=== PATIENT | female | born 1980 | race Caucasian/White ===

== ENCOUNTER 2023-10-18 00:44 | Emergency (ER) | payer OTHER, SELFPAY ==
[2023-10-18 00:51] VITALS: BP 210/136
[2023-10-18 01:25] VITALS: BMI 35.3
--- NOTE | 2023-10-18 01:25 | ED.GENMED ---
History of Present Illness
<LETICIA Mcbride - Last Filed: 10/18/23 01:43>
General
Chief Complaint: Blood Pressure Problem
Source: patient
Exam Limitations: none
Time Seen by Provider: 10/18/23 01:07
Travel History
Have you had any contact with someone who has COVID-19?: No
Do you have any symptoms of coronavirus? Fever > 100 degrees, chills, cough, shortness of breath, sore throat, loss of taste or smell, muscle aches, or headache?: Yes
Symptoms:: sore throat
History of Present Illness
History of Present Illness:
43 YO F with a PMH of glaucoma, controlled on Simbrinza and Lumigan gtts, preeclampsia x 12 years, presenting here today for high blood pressure x 2 hours. Pt reports she saw her primary doctor recently for a scratchy throat on 10/14. She was strep
tested and it was negative. Her blood pressure at that time was 180/120, so her doctor informed her to come back in a week if the pressure was still elevated. Pt decided to come in due to a BP reading of 210/136 manually, taken at 11:30 p.m. She
complains of a minor headache, rating the severity a 1/10. She reports that she had a minor headache over the past few days. She states her blood pressure has never been this high. She denies a PMH of diabetes or HTN. Denies CP, SOB, N and V. She
reports a few loose stools. Pt reports she is currently on control.
Past History
<LETICIA Mcbride - Last Filed: 10/18/23 01:43>
Social History
Tobacco: Non-smoker
Alcohol: None
Drug: None
Employment: Not employed
Family History
Family History: CAD ([place])
Review of Systems
<LETICIA Mcbride - Last Filed: 10/18/23 01:43>
Review of Systems
Constitutional: Reports no symptoms
EENT: Reports no symptoms
Respiratory: Reports no symptoms
Cardiac: Reports no symptoms
ABD/GI: Reports no symptoms
: Reports no symptoms
Musculoskeletal: Reports no symptoms
Skin: Reports no symptoms
Neurological: Reports no symptoms
Endocrine: Reports no symptoms
Phy Exam
<ST RaeAZ - Last Filed: 10/18/23 01:43>
Physical Exam
Physical Exam:
Normal S1 and S2, Breath sounds are equal B/L
General Physical Exam
General Presentation: well appearing
General age: appears stated age
General Habitus: normal
General Mental: alert
General Hydration: appears well hydrated
Cardiovascular Exam
Cardiovascular Exam: regular rate/rhythm
Pulmonary Exam
Pulmonary Exam: lungs clear
Cough: other (Slight cough)
Neurological Exam
Neurological Exam: alert and oriented x3
Psychiatric Exam
Psychiatric Exam: normal mood/affect
Course
<Lizette Ashley [facility] - Last Filed: 10/18/23 01:43>
Orders/Labs/Results
Orders:
Orders
10/18/23 01:33
Complete Blood Count/With Diff Urgent
Comprehensive Metabolic Panel Urgent
TSH Urgent
10/18/23 01:44
Lisinopril [Zestril] 5 mg PO NOW STA
Abnormal Lab Results
10/18/23
01:33
Hct 35.2 L %
(37.0-47.0)
BUN 6 L mg/dl
(7-17)
Creatinine 0.4 L mg/dL
(0.6-1.0)
Glucose 114 H mg/dl
(70-99)
AST 37 H U/L
(14-36)
10/18/23 01:33
10/18/23 01:33
Vital Signs
Initial and Last Documented VS:
Initial Vital Signs
Temp Pulse Resp BP Pulse Ox
99.0 F 109 18 210/136 99
10/18/23 00:51 10/18/23 00:51 10/18/23 00:51 10/18/23 00:51 10/18/23 00:51
Last Documented Vital Signs
Temp Pulse Resp BP Pulse Ox
98.9 F 101 15 171/102 96
10/18/23 01:51 10/18/23 04:02 10/18/23 04:00 10/18/23 04:02 10/18/23 04:02
Renalt;Eduardo Caldwell, DO - Last Filed: 10/18/23 04:40>
Orders/Labs/Results
Orders:
Orders
10/18/23 01:33
Complete Blood Count/With Diff Urgent
Comprehensive Metabolic Panel Urgent
TSH Urgent
10/18/23 01:44
Lisinopril [Zestril] 5 mg PO NOW STA
Abnormal Lab Results
10/18/23
01:33
Hct 35.2 L %
(37.0-47.0)
BUN 6 L mg/dl
(7-17)
Creatinine 0.4 L mg/dL
(0.6-1.0)
Glucose 114 H mg/dl
(70-99)
AST 37 H U/L
(1436)
10/18/23 01:33
10/18/23 01:33
Vital Signs
Initial and Last Documented VS:
Initial Vital Signs
Temp Pulse Resp BP Pulse Ox
99.0 F 109 18 210/136 99
10/18/23 00:51 10/18/23 00:51 10/18/23 00:51 10/18/23 00:51 10/18/23 00:51
Last Documented Vital Signs
Temp Pulse Resp BP Pulse Ox
98.9 F 101 15 171/102 96
10/18/23 01:51 10/18/23 04:02 10/18/23 04:00 10/18/23 04:02 10/18/23 04:02
<LETICIA Mcbride - Last Filed: 10/18/23 01:43>
MDM/Problems Addressed
Differential Diagnosis Includes:
Hypertensive episode, Renal artery stenosis, CKD, Aortic stenosis
MDM/Problems Addressed:
HBP x 2 hours
<LETICIA Mcbride - Last Filed: 10/18/23 01:43>
*Critical Care Note
Total Time (30-74mins, 75-104mins- exclusive of procedures): Not Applicable
<Eduardo Caldwell DO - Last Filed: 10/18/23 04:40>
Update Note
Update Note:
10/18/2023 0355 AM: Patient resting comfortably. Blood pressure is improving. Will continue to observe
ED Attending Note
<LETICIA Mcbride - Last Filed: 10/18/23 01:43>
-
Portions of this chart may have been created with voice recognition software.� Occasional wrong word or��sound alike� substitutions may have occurred due to the inherent limitations of voice recognition software.
<Eduardo Caldwell DO - Last Filed: 10/18/23 04:40>
ED Attending Note
Patient seen and examined by attending physician: Yes
I performed the substantive portion of visit, reviewed & personally made and approve the management plan that is documented in note by myself or BUBBA.: Yes
ED Attending Note:
Pleasant 43-year-old female presents with hypertension. Patient was seen at her primary care provider 3 days ago and it was noted that she was hypertensive. She states that she was given a blood pressure cuff that check her blood pressure at home.
Tonight she noted that the blood pressure was elevated so she came into the emergency department. Patient states that she has a chronic headache. It has not been exacerbated by this blood pressure according to patient. She states that the
headache is very mild and no different than her typical headaches. Patient has a sore throat and nasal congestion for which she originally saw her family doctor for. Denies fever or chills. Patient was seen in conjunction with the PA student. I
have reviewed and agree with the history and treatment plan presented. On my independent physical exam, patient is awake, alert, and oriented x3, no acute distress. Heart is regular rate and rhythm. Lungs are clear to auscultation bilaterally
without wheezes rales or rhonchi present
10/18/2023 0437 AM; patient resting comfortably, in no acute distress. Blood pressure is acceptable. Will discharge on lisinopril. She will follow-up with her family doctor
Discharge Plan
Departure
Patient Disposition: Home (Routine Discharge)
Date of Disposition: 10/18/23
Time of Disposition: 04:37
Patient with high blood pressure during this ER visit?: Yes
Condition: Good
Discharge Problem:
Hypertension
Instructions: High Blood Pressure (DC), BLOOD PRESSURE
Prescriptions:
New
lisinopril [Zestril] 10 mg tablet
10 mg PO DAILY Qty: 30 0RF
No Action
norgestimate-ethinyl estradiol [Bri] 0.25-35 mg-mcg Tablet
1 tab PO DAILY
bimatoprost 0.01 % Drops
1 drp OPHTHALMIC (EYE) QPM
Simbrinza 1-0.2 % Drops,Suspension
1 drp OPHTHALMIC (EYE) BID
Referrals:
Josesito Carrasco DO [Family Provider] -
Activity Restrictions/Additional Instructions:
It was a pleasure meeting you and taking part in your care. We hope for your continued healing and wellness.
Please read discharge instructions in their entirety. However, they are for general education and may not describe your exact diagnosis at discharge. Information on your ER visit and medical conditions were discussed with you along with appropriate
follow up information...
If indicated, please take your medications as instructed and indicated on discharge paperwork.
Please schedule a follow up appointment as directed. Call to schedule an appointment
Please return to the emergency department with ANY change in, persisting, or worsening of symptoms. If any of your symptoms do not improve, or persist, or become more severe within 6-12 hours, please return to the emergency department for further
care.
Please return to the emergency department if you develop a headache, neck pain/stiffness, fever greater than 100.4F, chest pain, shortness of breath, persistent nausea, vomiting, slurred speech, difficulty walking, numbness/tingling, weakness, signs
of infection or any other symptoms that are worrisome to you.
If you have any questions or concerns please do not hesitate to call the Hospital at or E-mail me directly at [email or web address]
Interventions
Interventions:
*Risk Screen - Suicide Last Done: 10/18/23 00:51
*General Assessment Last Done: 10/18/23 00:51
*Neglect/Abuse Screening Last Done: 10/18/23 00:51
ED- Fall Risk Assessment Last Done: 10/18/23 00:51
*ED COVID-19 Vaccine History Last Done: 10/18/23 00:51
ED- Cardiac Assessment Last Done: 10/18/23 01:52
ED- Neurological Assessment Last Done: 10/18/23 01:52
ED- Pulmonary Assessment Last Done: 10/18/23 01:52
Discharge Date and Time
Print Language: ARABIC
[2023-10-18 01:39] LABS: % Basophils 0.4 % (0-2); % Eosinophils 4.5 % (0-6); % Immature Granulocytes 0.5 % (0-0.5); % Lymphocytes 22.2 % (20.5-51.1); % Neutrophils 64.4 % (42.2-75.2); Absolute Eosinophils 0.3 10^3/uL (0-0.7); Absolute Lymphocytes 1.6 10^3/uL (1.2-3.4); Absolute Monocytes 0.6 10^3/uL (0.1-0.6); Absolute Neutrophils 4.8 10^3/uL (1.4-6.5); Hematocrit 35.2 % (37.0-47.0); Mean Corp Hgb Conc. 34.1 g/dL (33.0-37.0); Mean Corpuscular Hgb 27.6 pg (27.0-31.0); Mean Corpuscular Volume 81.1 fL (81.0-99.0); Mean Platelet Volume 8.7 fL (7.4-10.4); Nucleated Red Blood Cells % 0 %; Platelet Count 331 10^3/uL (130-400); Red Blood Cell Count 4.34 10^6/uL (4.20-5.40); Red Cell Dist. Width 12.6 % (11.5-14.5); White Blood Cell Count 7.4 10^3/uL (4.8-10.8)
[2023-10-18 01:54] VITALS: BP 195/123
[2023-10-18] MEDS: ZESTRIL 5 MG PO (01:55)
[2023-10-18 01:58] LABS: ALT (SGPT) 30 U/L (0-35); AST (SGOT) 37 U/L (14-36); Albumin 4.3 g/dl (3.5-5.0); Alkaline Phosphatase 104 U/L (38-126); Blood Urea Nitrogen 6 mg/dl (7-17); Calcium 9.6 mg/dl (8.4-10.2); Carbon Dioxide 25 mmol/L (22-30); Chloride 103 mmol/L (98-107); Estimated Creatinine Clearance 115 ml/min; Glucose 114 mg/dl (70-99); Sodium 140 mmol/L (135-145); Total Bilirubin 0.4 mg/dl (0.2-1.3); Total Protein 7.3 g/dl (6.3-8.2); eGFR > 60.00
[2023-10-18 02:58] VITALS: BP 196/107
[2023-10-18 03:05] LABS: TSH 2.32 uIU/ml (0.47-4.68)
[2023-10-18 03:47] VITALS: BP 181/103
[2023-10-18 04:02] VITALS: BP 171/102
[2023-10-18 04:30] VITALS: BP 176/100
== END 2023-10-18 06:36 | disposition home or self-care (01) ==
LOC: EMR 00:44
PROVIDERS: EMERGENCY PHYSICIAN Student in an Organized Health Care Education/Training Program; FAMILY PHYSICIAN Family Medicine
DX: I10 Essential (primary) hypertension (principal)
CPT/HCPCS: 99283; 80053; 84443; 85025

== ENCOUNTER 2023-10-18 23:49 | Emergency (ER) | payer OTHER, SELFPAY ==
[2023-10-18 23:54] VITALS: BP 256/135
[2023-10-18 23:59] VITALS: BP 237/151
--- NOTE | 2023-10-19 00:37 | ED.GENMED ---
Addendum entered and electronically signed by Phong Silva DO 10/19/23 02:29:
EKG: Normal sinus rhythm, normal axis, no ischemia
Patient also complained of right ear pain. Found to have red and bulging right TM. Treat with antibiotics. Blood pressure much improved
Original Note:
History of Present Illness
General
Chief Complaint: Blood Pressure Problem
Source: patient
Exam Limitations: none
Time Seen by Provider: 10/19/23 00:17
Travel History
Have you had any contact with someone who has COVID-19?: No
Do you have any symptoms of coronavirus? Fever > 100 degrees, chills, cough, shortness of breath, sore throat, loss of taste or smell, muscle aches, or headache?: No
History of Present Illness
History of Present Illness:
43-year-old female presents with uncontrolled hypertension. Patient was seen here yesterday after it was noted to be elevated at home. Patient then was started on lisinopril. Her dosage was increased by her PCP today at 1245. As the day went on
her blood pressure continued to increase. Patient otherwise feels okay. She states feels little nervous about her blood pressure but otherwise no chest pain or headache. No vision changes. Patient states that she thinks that back in May
blood pressure was normal.
Past History
Past History
ED Past Medical History: HTN and Other (Glaucoma, endometriosis, polycystic ovarian syndrome)
Social History
Tobacco: Non-smoker
Alcohol: None
Drug: None
Employment: Not employed
Family History
Family History: CAD ([place])
Phy Exam
Physical Exam
Physical Exam:
CONSTITUTIONAL Patient alert and oriented to person, place and time. Well-appearing. Vital signs reviewed.
HEAD atraumatic, normocephalic.
EYES eyelids normal to inspection, Pupils equally round and reactive to light, Extraocular muscles intact, Conjunctiva normal, Sclera normal.
NECK normal range of motion, Trachea midline, no jugular venous distention.
RESPIRATORY CHEST No respiratory distress noted, Chest expansion equal, Bilateral breath sounds clear.
CARDIOVASCULAR regular rate and rhythm, Heart sounds normal.
ABDOMEN No distention.
BACK normal inspection, no obvious deformities
UPPER EXTREMITY range of motion normal, Motor strength normal, no cyanosis, no edema.
LOWER EXTREMITY range of motion normal, Motor strength normal, no cyanosis, no edema.
NEURO Speech normal, No focal motor deficits, Hal coma scale 15, Memory normal, Cranial Nerves intact to screening exam.
SKIN skin warm, dry, and normal in color.
PSYCHIATRIC patient oriented to person place and time, Normal affect.
Course
Orders/Labs/Results
Orders:
Orders
10/19/23 00:36
Electrocardiogram (*1) Stat
Reason for Study: Hypertension, Benign
EKG- Treatment ONCE
10/19/23 00:46
Labetalol HCl [Trandate] 10 mg IV NOW STA
10/19/23 00:51
Basic Metabolic Panel Urgent
Complete Blood Count/With Diff Urgent
10/19/23 01:24
Labetalol [Trandate] 100 mg PO NOW STA
10/19/23 02:00
Flush (0.9% Sodium Chloride) [Flush (Nss)] See Dose Instructions IV PER PROTOCOL
10/19/23 02:03
Labetalol HCl [Trandate] 20 mg IV NOW STA
Abnormal Lab Results
10/19/23
00:51
RBC 4.07 L 10^6/uL
(4.20-5.40)
Hgb 11.3 L g/dL
(12.0-16.0)
Hct 33.0 L %
(37.0-47.0)
Absolute Neuts (auto) 7.8 H 10^3/uL
(1.4-6.5)
Absolute Monos (auto) 0.7 H 10^3/uL
(0.1-0.6)
Lymphocytes % 15.3 L %
(20.5-51.1)
Creatinine 0.4 L mg/dL
(0.6-1.0)
Glucose 124 H mg/dl
(70-99)
10/19/23 00:51
10/19/23 00:51
Vital Signs
Initial and Last Documented VS:
Initial Vital Signs
Temp Pulse Resp Pulse Ox
97.4 F 96 16 99
10/18/23 23:51 10/18/23 23:51 10/18/23 23:51 10/18/23 23:51
Last Documented Vital Signs
Temp Pulse Resp BP Pulse Ox
97.4 F 90 18 181/100 95
10/18/23 23:51 10/19/23 01:22 10/19/23 01:22 10/19/23 01:22 10/19/23 01:22
MDM/Problems Addressed
MDM/Problems Addressed:
Hypertensive urgency
*Pulse Oximetry
Patient hypoxic: no
*Visual Coordinator Interpretation
Rate: normal
Interpretation: normal
Rhythm: sinus
*Critical Care Note
Total Time (30-74mins, 75-104mins- exclusive of procedures): 30 minutes
Data Reviewed
Review of Other/Old Records Reveals: Labs
Source: patient
Further Testing Considered But Not Given:
Consider head CT but no neurologic symptoms
Patient Management
Escalation/DeEscalation of care consider admission/obs:
Blood pressure has responded well to labetalol. I do think this may be a better choice for her continued hypertension. Long discussion with the patient about the need for outpatient follow-up regarding the possibility of secondary hypertension.
Patient agrees. Overall appears well. She will keep a log at home. PCP follow-up
ED Attending Note
-
Portions of this chart may have been created with voice recognition software.� Occasional wrong word or��sound alike� substitutions may have occurred due to the inherent limitations of voice recognition software.
Discharge Plan
Departure
Patient Disposition: Home (Routine Discharge)
Date of Disposition: 10/19/23
Time of Disposition: 02:15
Patient with high blood pressure during this ER visit?: Yes
Discharge Problem:
Uncontrolled hypertension
Instructions: High Blood Pressure (DC), BLOOD PRESSURE
Prescriptions:
New
labetalol 100 mg tablet
100 mg PO BID Qty: 60 0RF
No Action
norgestimate-ethinyl estradiol [Bri] 0.25-35 mg-mcg Tablet
1 tab PO DAILY
bimatoprost 0.01 % Drops
1 drp OPHTHALMIC (EYE) QPM
Simbrinza 1-0.2 % Drops,Suspension
1 drp OPHTHALMIC (EYE) BID
lisinopril [Zestril] 10 mg tablet
20 mg PO DAILY
Referrals:
UNKNOWN - PT DOES,NOT KNOW [Family Provider] -
Activity Restrictions/Additional Instructions:
Please see your doctor in the next 3-5 days for follow-up and reevaluation. Return immediately for chest pain, shortness of breath, weakness of any kind, headache, vision changes or any other concerns. The dose of labetalol can be increased to 200
mg twice a day. Please have your doctor follow-up on this as the dose can be increased after 3 days.
Interventions
Interventions:
*Risk Screen - Suicide Last Done: 10/18/23 23:51
*General Assessment Last Done: 10/18/23 23:51
*Neglect/Abuse Screening Last Done: 10/18/23 23:51
ED- Fall Risk Assessment Last Done: 10/19/23 00:58
ED- Cardiac Assessment Last Done: 10/19/23 00:58
ED- Neurological Assessment Last Done: 10/19/23 00:58
ED- Pulmonary Assessment Last Done: 10/19/23 00:58
Discharge Date and Time
Print Language: THAI
[2023-10-19] MEDS: TRANDATE 10 MG IV (00:52)
[2023-10-19 00:53] VITALS: BMI 34.0
[2023-10-19 01:01] LABS: % Basophils 0.5 % (0-2); % Immature Granulocytes 0.4 % (0-0.5); % Lymphocytes 15.3 % (20.5-51.1); % Monocytes 6.8 % (1.7-9.3); Absolute Basophils 0.1 10^3/uL (0-0.2); Absolute Eosinophils 0.3 10^3/uL (0-0.7); Absolute Lymphocytes 1.6 10^3/uL (1.2-3.4); Absolute Monocytes 0.7 10^3/uL (0.1-0.6); Absolute Neutrophils 7.8 10^3/uL (1.4-6.5); Hemoglobin 11.3 g/dL (12.0-16.0); Mean Corp Hgb Conc. 34.2 g/dL (33.0-37.0); Mean Corpuscular Hgb 27.8 pg (27.0-31.0); Mean Corpuscular Volume 81.1 fL (81.0-99.0); Mean Platelet Volume 8.9 fL (7.4-10.4); Nucleated Red Blood Cells % 0 %; Platelet Count 325 10^3/uL (130-400); Red Blood Cell Count 4.07 10^6/uL (4.20-5.40); Red Cell Dist. Width 12.7 % (11.5-14.5); White Blood Cell Count 10.5 10^3/uL (4.8-10.8)
[2023-10-19 01:20] LABS: Blood Urea Nitrogen 7 mg/dl (7-17); Calcium 9.3 mg/dl (8.4-10.2); Carbon Dioxide 26 mmol/L (22-30); Chloride 102 mmol/L (98-107); Estimated Creatinine Clearance 112 ml/min; Glucose 124 mg/dl (70-99); Sodium 138 mmol/L (135-145); eGFR > 60.00
[2023-10-19 01:22] VITALS: BP 181/100
[2023-10-19] MEDS: TRANDATE 20 MG IV (02:06)
[2023-10-19] MEDS: TRANDATE 100 MG PO (02:23)
--- NOTE | 2023-10-19 02:25 | ED.GENMED ---
History of Present Illness
General
Chief Complaint: Blood Pressure Problem
Time Seen by Provider: 10/19/23 00:17
Travel History
Have you had any contact with someone who has COVID-19?: No
Do you have any symptoms of coronavirus? Fever > 100 degrees, chills, cough, shortness of breath, sore throat, loss of taste or smell, muscle aches, or headache?: No
Past History
Past History
ED Past Medical History: HTN and Other (Glaucoma, endometriosis, polycystic ovarian syndrome)
Social History
Tobacco: Non-smoker
Alcohol: None
Drug: None
Employment: Not employed
Family History
Family History: CAD ([place])
Course
Orders/Labs/Results
Orders:
Orders
10/19/23 00:36
Electrocardiogram (*1) Stat
Reason for Study: Hypertension, Benign
EKG- Treatment ONCE
10/19/23 00:46
Labetalol HCl [Trandate] 10 mg IV NOW STA
10/19/23 00:51
Basic Metabolic Panel Urgent
Complete Blood Count/With Diff Urgent
10/19/23 02:00
Flush (0.9% Sodium Chloride) [Flush (Nss)] See Dose Instructions IV PER PROTOCOL
10/19/23 02:03
Labetalol HCl [Trandate] 20 mg IV NOW STA
10/19/23 02:14
Labetalol [Trandate] 100 mg PO NOW STA
Abnormal Lab Results
10/19/23
00:51
RBC 4.07 L 10^6/uL
(4.20-5.40)
Hgb 11.3 L g/dL
(12.0-16.0)
Hct 33.0 L %
(37.0-47.0)
Absolute Neuts (auto) 7.8 H 10^3/uL
(1.4-6.5)
Absolute Monos (auto) 0.7 H 10^3/uL
(0.1-0.6)
Lymphocytes % 15.3 L %
(20.5-51.1)
Creatinine 0.4 L mg/dL
(0.6-1.0)
Glucose 124 H mg/dl
(70-99)
10/19/23 00:51
10/19/23 00:51
Vital Signs
Initial and Last Documented VS:
Initial Vital Signs
Temp Pulse Resp Pulse Ox
97.4 F 96 16 99
10/18/23 23:51 10/18/23 23:51 10/18/23 23:51 10/18/23 23:51
Last Documented Vital Signs
Temp Pulse Resp BP Pulse Ox
97.4 F 90 18 181/100 95
10/18/23 23:51 10/19/23 01:22 10/19/23 01:22 10/19/23 01:22 10/19/23 01:22
Update Note
Update Note:
Patient also complained of right ear pain. On evaluation her right ear is bulging and red. Her initial evaluation by her doctor was due to scratchy throat and upper respiratory infection.
ED Attending Note
-
Portions of this chart may have been created with voice recognition software.� Occasional wrong word or��sound alike� substitutions may have occurred due to the inherent limitations of voice recognition software.
Discharge Plan
Departure
Patient Disposition: Home (Routine Discharge)
Date of Disposition: 10/19/23
Time of Disposition: 02:15
Patient with high blood pressure during this ER visit?: Yes
Discharge Problem:
Uncontrolled hypertension, Otitis media
Instructions: High Blood Pressure (DC), Ear Infections in Adults (DC), BLOOD PRESSURE
Prescriptions:
New
labetalol 100 mg tablet
100 mg PO BID Qty: 60 0RF
amoxicillin-pot clavulanate 875-125 mg tablet
1 tab PO BID Qty: 14 0RF
No Action
norgestimate-ethinyl estradiol [Bri] 0.25-35 mg-mcg Tablet
1 tab PO DAILY
bimatoprost 0.01 % Drops
1 drp OPHTHALMIC (EYE) QPM
Simbrinza 1-0.2 % Drops,Suspension
1 drp OPHTHALMIC (EYE) BID
lisinopril [Zestril] 10 mg tablet
20 mg PO DAILY
Referrals:
UNKNOWN - PT DOES,NOT KNOW [Family Provider] -
Activity Restrictions/Additional Instructions:
Please see your doctor in the next 3-5 days for follow-up and reevaluation. Return immediately for chest pain, shortness of breath, weakness of any kind, headache, vision changes or any other concerns. The dose of labetalol can be increased to 200
mg twice a day. Please have your doctor follow-up on this as the dose can be increased after 3 days.
Interventions
Interventions:
*Risk Screen - Suicide Last Done: 10/18/23 23:51
*General Assessment Last Done: 10/18/23 23:51
*Neglect/Abuse Screening Last Done: 10/18/23 23:51
ED- Fall Risk Assessment Last Done: 10/19/23 00:58
ED- Cardiac Assessment Last Done: 10/19/23 00:58
ED- Neurological Assessment Last Done: 10/19/23 00:58
ED- Pulmonary Assessment Last Done: 10/19/23 00:58
Discharge Date and Time
Print Language: GAMBIAN
[2023-10-19 02:48] VITALS: BP 156/95
== END 2023-10-19 02:50 | disposition home or self-care (01) ==
LOC: EMR 23:49
PROVIDERS: EMERGENCY PHYSICIAN Emergency Medicine
DX: I10 Essential (primary) hypertension (principal); H66.91 Otitis media, unspecified, right ear
CPT/HCPCS: 99291; 96374; 96376; 80048; 85025; 93005

== ENCOUNTER 2023-10-22 09:06 | Emergency (ER) | payer OTHER, SELFPAY ==
[2023-10-22 09:10] VITALS: BP 163/106
[2023-10-22 10:37] VITALS: BMI 34.5
[2023-10-22 10:52] VITALS: BP 151/74
[2023-10-22] MEDS: BENTYL 20 MG IM (10:58)
[2023-10-22 11:08] LABS: % Basophils 0.4 % (0-2); % Eosinophils 1.9 % (0-6); % Immature Granulocytes 1.9 % (0-0.5); % Lymphocytes 15.5 % (20.5-51.1); % Monocytes 5.5 % (1.7-9.3); % Neutrophils 74.8 % (42.2-75.2); Absolute Eosinophils 0.2 10^3/uL (0-0.7); Absolute Immature Granulocytes 0.2 10^3/uL (0-0.05); Absolute Lymphocytes 1.6 10^3/uL (1.2-3.4); Absolute Monocytes 0.6 10^3/uL (0.1-0.6); Absolute Neutrophils 7.9 10^3/uL (1.4-6.5); Hematocrit 36.4 % (37.0-47.0); Hemoglobin 12.1 g/dL (12.0-16.0); Mean Corp Hgb Conc. 33.2 g/dL (33.0-37.0); Mean Corpuscular Hgb 27.7 pg (27.0-31.0); Mean Corpuscular Volume 83.3 fL (81.0-99.0); Mean Platelet Volume 9.2 fL (7.4-10.4); Nucleated Red Blood Cells % 0 %; Platelet Count 454 10^3/uL (130-400); Red Blood Cell Count 4.37 10^6/uL (4.20-5.40); Red Cell Dist. Width 13.2 % (11.5-14.5); White Blood Cell Count 10.6 10^3/uL (4.8-10.8)
[2023-10-22 11:14] LABS: ALT (SGPT) 42 U/L (0-35); AST (SGOT) 77 U/L (14-36); Albumin 3.9 g/dl (3.5-5.0); Alkaline Phosphatase 104 U/L (38-126); Blood Urea Nitrogen 8 mg/dl (7-17); Calcium 9.3 mg/dl (8.4-10.2); Carbon Dioxide 24 mmol/L (22-30); Chloride 100 mmol/L (98-107); Estimated Creatinine Clearance 113 ml/min; Glucose 114 mg/dl (70-99); Potassium 4.6 mmol/L (3.5-5.1); Sodium 136 mmol/L (135-145); Total Bilirubin 0.5 mg/dl (0.2-1.3); Total Protein 6.8 g/dl (6.3-8.2); eGFR > 60.00
[2023-10-22 11:26] LABS: Troponin I < 0.012 ng/ml
--- NOTE | 2023-10-22 13:01 | ED.GENMED ---
History of Present Illness
General
Chief Complaint: Fainting/Passed Out
Source: patient and spouse
Exam Limitations: none
Time Seen by Provider: 10/22/23 10:23
Nursing documentation reviewed up to this point in time: agreed with
Travel History
Have you had any contact with someone who has COVID-19?: No
Do you have any symptoms of coronavirus? Fever > 100 degrees, chills, cough, shortness of breath, sore throat, loss of taste or smell, muscle aches, or headache?: No
History of Present Illness
History of Present Illness:
43-year-old female past medical history of hypertension endometriosis PCOS presenting to the emergency department with concerns of a syncopal episode that occurred prior to arrival. She claims that she was taken a pill for an ear infection today
choked on it felt lightheaded fell to the floor hit the left side of her head witnessed out for about 30 seconds has also had some abdominal bloating symptoms additionally had recent diagnosis of high blood pressure last week and was started
on lisinopril labetalol and hydralazine.
Past History
Past History
ED Past Medical History: HTN and Other (Glaucoma, endometriosis, polycystic ovarian syndrome)
Social History
Tobacco: Non-smoker
Alcohol: None
Drug: None
Employment: Not employed
Family History
Family History: CAD ([place])
Review of Systems
Review of Systems
Allergies reviewed?: Yes
All Other Systems: ROS reviewed and negative except as documented in HPI and ROS
Phy Exam
Physical Exam
Physical Exam:
GENERAL: Alert , in no apparent distress
EYE: pupils equal and reactive
NECK: Supple, no significant adenopathy.
ENT: o/p clr, mmm.
CARDIAC: Regular rate and rhythm .
LUNGS: Clear breath sounds bilaterally, no acute respiratory distress, no wheezes/rales/rhonchi
ABDOMEN: Soft, without focal tenderness, no r/g, no cvat
NEUROLOGICAL: Alert and oriented, no focal neuro deficits
SKIN: Warm and dry, skin intact.
MUSCULOSKELETAL: No edema, well perfused.
PSYCH: Normal and appropriate interaction.
Course
Orders/Labs/Results
Orders:
Orders
10/22/23 09:16
Electrocardiogram (*1) Urgent
Reason for Study: Syncope
EKG- Treatment ONCE
10/22/23 10:36
CR Chest - 2 Views Urgent
Comment:
Reason For Exam: fainting episode after possible esophageal obstruc
10/22/23 10:49
CT Head W/o Iv Contrast Urgent
Comment:
Reason For Exam: fall hit head, syncope
Dicyclomine HCl [Bentyl] 20 mg IM NOW STA
10/22/23 10:54
Complete Blood Count/With Diff Urgent
Comprehensive Metabolic Panel Urgent
Magnesium Urgent
TSH Reflex To Free T4 Urgent
Troponin I Urgent
Abnormal Lab Results
10/22/23
10:54
Hct 36.4 L %
(37.0-47.0)
Plt Count 454 H D 10^3/uL
(130-400)
Abs Immat Gran (auto) 0.2 H 10^3/uL
(0-0.05)
Absolute Neuts (auto) 7.9 H 10^3/uL
(1.4-6.5)
Immature Gran % 1.9 H %
(0-0.5)
Lymphocytes % 15.5 L %
(20.5-51.1)
Glucose 114 H mg/dl
(70-99)
AST 77 H U/L
(14-36)
ALT 42 H U/L
(0-35)
10/22/23 10:54
10/22/23 10:54
Vital Signs
Initial and Last Documented VS:
Initial Vital Signs
Temp Pulse Resp BP Pulse Ox
98.8 F 95 20 163/106 96
10/22/23 09:10 10/22/23 09:10 10/22/23 09:10 10/22/23 09:10 10/22/23 09:10
Last Documented Vital Signs
Temp Pulse Resp BP Pulse Ox
98.8 F 95 20 151/74 96
10/22/23 09:10 10/22/23 09:10 10/22/23 09:10 10/22/23 10:52 10/22/23 09:10
MDM/Problems Addressed
MDM/Problems Addressed:
43-year-old female presenting to the emergency department today with concerns of syncopal episode. Here EKG without emergent findings head CT was performed due to head injury after passing out that was normal as well chest x-ray normal labs showing
slightly elevated liver function test which she has had in the past troponin negative other labs unremarkable vital signs showing mildly elevated blood pressure in the 150s over 70s otherwise vital signs are normal. Patient appears stable for
discharge with no emergent findings advised for close outpatient follow-up. Return precautions given.
*Critical Care Note
Total Time (30-74mins, 75-104mins- exclusive of procedures): Not Applicable
ED Attending Note
-
Portions of this chart may have been created with voice recognition software.� Occasional wrong word or��sound alike� substitutions may have occurred due to the inherent limitations of voice recognition software.
Discharge Plan
Departure
Patient Disposition: Home (Routine Discharge)
Date of Disposition: 10/22/23
Time of Disposition: 13:03
Patient with high blood pressure during this ER visit?: No
Condition: Good
Covid-19: Not Applicable
Discharge Problem:
Syncope
Instructions: Syncope (Fainting) (DC)
Prescriptions:
No Action
norgestimate-ethinyl estradiol [Bri] 0.25-35 mg-mcg Tablet
1 tab PO DAILY
bimatoprost 0.01 % Drops
1 drp OPHTHALMIC (EYE) QPM
Simbrinza 1-0.2 % Drops,Suspension
1 drp OPHTHALMIC (EYE) BID
lisinopril [Zestril] 10 mg tablet
20 mg PO DAILY
labetalol 100 mg tablet
100 mg PO BID Qty: 60 0RF
amoxicillin-pot clavulanate 875-125 mg tablet
1 tab PO BID Qty: 14 0RF
Referrals:
Josesito Carrasco DO [Family Provider] -
Activity Restrictions/Additional Instructions:
You came to the emergency department after syncopal episode. Here you had a reassuring assessment. Please have close with the primary care doctor. Return to the emergency department for any worsening, new or concerning symptoms.
Discharge Date and Time
Print Language: THAI
[2023-10-22 15:39] LABS: TSH Reflex To Free T4 1.37 uIU/ml (0.47-4.68)
== END 2023-10-22 13:42 | disposition home or self-care (01) ==
LOC: EMR 09:06
PROVIDERS: Physician Assistant; EMERGENCY PHYSICIAN Emergency Medicine; FAMILY PHYSICIAN Family Medicine
DX: R55 Syncope and collapse (principal); W18.30XA Fall on same level, unspecified, initial encounter; Y92.009 Unspecified place in unspecified non-institutional (private) residence as the place of occurrence of the external cause; I10 Essential (primary) hypertension; E28.2 Polycystic ovarian syndrome; H40.9 Unspecified glaucoma; N80.9 Endometriosis, unspecified
CPT/HCPCS: 99284; 96372; 70450; 71046; 80053; 83735; 84443; 84484; 85025; 93005